=== PATIENT | female | born 1980 | race American Indian/Alaskan Native ===

== ENCOUNTER 2021-07-12 09:25 | Emergency (ER) | payer BC ==
--- NOTE | 2021-07-12 09:56 | Emergency Department Report ---
HPI - General Chief Complaint: Cardiac Arrest/CPR Time Seen by Provider: 07/12/21 09:44 - HPI HPI: Middle-age appearing female with unknown past medical history is brought in by EMS in cardiac arrest after she had a witnessed collapse while on the treadmill at the gym. An AED was applied on scene and delivered 2 shocks. There was approximately a 5-minute delay but CPR was started. When EMS arrived the initial rhythm was V. fib. Patient was given 300 mg of amiodarone, cardiac epi, and bicarb per ACLS protocol. She has remained in V. Fib throughout transport. She was intubated with confirmed placement by end-tidal. She was given IV fluids. Further details of the HPI are limited due to the patient's current clinical condition. ED Review of Systems ROS: Stated complaint: CARDIAC ARREST Other details as noted in HPI Comment: Unobtainable due to pts medical conditions Physical Exam - Physical Exam Physical Exam: GENERAL: Well developed and well nourished. Obtunded and unresponsive HEAD: Normocephalic. There is an abrasion noted to the right forehead just above the eyebrow. ENT: Moist mucous membranes. Endotracheal tube is present with appropriate condensation in the tube. EYES: Pupils are equal round and reactive to light bilaterally NECK: Trachea is midline. LUNGS: Bilateral breath sounds with bag valve ventilation CARDIOVASCULAR: CPR actively being performed. VASCULAR: 1+ edema of the bilateral lower extremities. No pulse. ABDOMEN: Abdomen is soft and nondistended.. SKIN: Skin is warm and dry NEURO: Unresponsive MUSCULOSKELETAL: No obvious deformities. Bilateral tibial IOs in place BACK/SPINE: No abnormalities appreciated. ED Medical Decision Making - Medical Decision Making Middle-age appearing female brought in by EMS in cardiac arrest after she had a witnessed collapse while on the treadmill at the gym. Patient was apparently found to be in V. fib and 2 shocks were delivered by an AED on scene. The patient has received CPR and cardiac epi as well as 300 mg of amiodarone per ACLS protocol. Upon arrival, it had been approximately 40 minutes since the patient first collapsed. Patient is intubated and pulseless. Initial rhythm shows coarse V. fib. Patient was administered 150 mg of IV amiodarone as well as cardiac epi, calcium, and magnesium in addition to bicarb. Fingerstick blood glucose was 394. Patient continued to be in coarse V. fib and she was defibrillated at 200 J multiple times. Because of persistent V. fib the patient was administered 100 mg of IV lidocaine. On the next rhythm check the patient was found to be in PEA. Bedside cardiac echo revealed no cardiac activity. Upon arrival, the patient's pupils were initially and reactive but by 9:45 the patient was noted to have unreactive pupils as well as mottling of her lower extremities. Despite continued CPR and meds per ACLS protocol the patient never regained a pulse and time of was called at 950, at which time the patient's rhythm was asystole. Bedside ultrasound revealed no cardiac activity. Critical care attestation.: If time is entered above; I have spent that time in minutes in the direct care of this critically ill patient, excluding procedure time. ED Disposition Clinical Impression: Cardiac arrest, Sustained ventricular fibrillation Disposition: 20 Is pt being admited?: No Referrals: PRIMARY CARE, [Primary Care Provider] - 3-5 Days
== END 2021-07-12 10:05 ==
LOC: EDBD 09:25 → ED 09:25
DX: I46.9 Cardiac arrest, cause unspecified (principal); I49.01 Ventricular fibrillation
CPT/HCPCS: 82962; 92950; 99285